=== PATIENT | female | born 1950 | race Caucasian/White ===

== ENCOUNTER → 2016-09-27 | Outpatient (CLI) | payer OTHER | LOC: FIMAGING 16:16 | DX: Z12.31 Encounter for screening mammogram for malignant neoplasm of breast (principal); Z85.41 Personal history of malignant neoplasm of cervix uteri; Z85.850 Personal history of malignant neoplasm of thyroid; Z80.3 Family history of malignant neoplasm of breast | CPT/HCPCS: G0202 ==

== ENCOUNTER 2017-03-25 08:48 | Emergency (ER) | payer OTHER ==
--- NOTE | 2017-03-25 09:03 | EDPHY ---
H & P Stated Complaint: Strated fluconazole 3 days ago;lips/tongue swelling; hurts to swallow HPI/ROS: CHIEF COMPLAINT: Allergic reaction HISTORY OF PRESENT ILLNESS: The patient is a 66 y/o female complaining of lip swelling and painful swallowing she believes is secondary to a drug reaction to fluconazole. She started fluconazole 3 days ago for a yeast infection and notes she's used this medication 3 times this summer. The last time she used she was also taking an antibiotic. She had mild oropharyngeal swelling that was thought to be due to the antibiotic, which she discontinued. Last night she noticed mild swelling in the middle of the night and upon waking this morning noticed significant lip swelling in the mirror. She also feels that her tongue is swollen. She denies hives, itching, rash, shortness of breath, lightheadedness, fever. She is otherwise healthy. REVIEW OF SYSTEMS: A ten point review of systems was performed and is negative with the exception of the items mentioned in the HPI. Past medical history: HRT, hypothyroidism Past surgical history: Denies Family history: Noncontributory Social history: at bedside. PCP: Dr. Sienna Aden General Appearance: Alert. Vital signs reviewed. No respiratory distress. Eyes: Pupils equal and round, no conjunctival injection, no discharge. Anicteric. ENT, Mouth: Mild edema to lips and mild tongue swelling, no swelling on floor of mouth. Uvula midline. Mucous membranes are moist, no oropharyngeal erythema. She is swallowing easily. Neck: No lymphadenopathy, supple. Respiratory: Lungs are clear to auscultation; no wheezes, rales, or rhonchi. No stridor. Cardiovascular: Regular rate and rhythm; no murmur, rub, or gallop. Gastrointestinal: Abdomen is soft and nontender, no masses or organomegaly, bowel sounds normal. Skin: Warm and dry, no rashes on exposed skin, normal color. Back: Nontender to palpation over the thoracolumbar spine. No CVAT. Extremities: No lower extremity edema, no calf tenderness or swelling. Neurological: Alert and oriented. Moving all four extremities easily and equally. Psychiatric: Normal affect. - Personal History Current Tetanus Diphtheria and Acellular Pertussis (TDAP): Yes - Medical/Surgical History Other PMH: yeast infection - Social History Smoking Status: Never smoked Constitutional: Initial Vital Signs Temperature (C) 37 C 03/25/17 08:50 Heart Rate 79 03/25/17 08:50 Respiratory Rate 18 03/25/17 08:50 Blood Pressure 111/80 03/25/17 08:50 O2 Sat (%) 98 03/25/17 08:50 O2 Delivery Mode Room Air Allergies/Adverse Reactions: metronidazole [From Flagyl] Allergy (Mild, Verified 03/25/17 08:53) Rash Home Medications: Medication Instructions Recorded Estrogens,Conjugated [Premarin 0.3 0.3 mg PO DAILY 03/25/17 MG (*)] Fluconazole [Diflucan (*)] 100 mg PO DAILY 03/25/17 Levothyroxine [Synthroid 100 mcg 100 mcg PO DAILY06 03/25/17 (*)] Simvastatin [Zocor] 20 mg PO 03/25/17 predniSONE [Prednisone] 20 mg PO BID #6 tablet 03/25/17 Medical Decision Making ED Course/Re-evaluation: IV established. Plan for symptomatic management with 0.3mg IV epinephrine, 50mg IV Zantac, 125mg IV Solumedrol, 25mg IV Benadryl, and 1L IV NS. 1012: Reassessed patient. Her swelling has improved. She feels shaky and tired from the medications. Will continue to reassess patient. 1220: Reassessed patient. She is feeling improved and is ready to go home. She was observed for 3 hours in the emergency department with no relapse or decline. She has discontinue the fluconazole, which is presumed to be the culprit in this setting. Obviously, that cannot be known for certain. I do not know whether the usual treatments for an allergic reaction will be effective in this setting of angioedema. I do not know whether this is mast cell mediated, bradykinin mediated, or histamine mediated angioedema. She has no family history of hereditary angioedema. She does not taken ALBERT-inhibitor. She will be discharged with a script for prednisone and standard angioedema care instructions. Return precautions given. She is comfortable with this plan. She understands that she may require further evaluation of this problem, especially if it recurs. Differential Diagnosis: I considered a differential diagnosis that includes but is not limited to anaphylaxis, allergic reaction, reaction to Albert inhibitor, hereditary angioedema , idiopathic recurrent angioedema. - Data Points Medications Given: Discontinued Medications Diphenhydramine HCl (Benadryl Injection) 25 mg IVP EDNOW ONE Stop: 03/25/17 09:13 Last Admin: 03/25/17 09:24 Dose: 25 mg Epinephrine HCl (Epinephrine) 0.3 mg IM EDNOW ONE Stop: 03/25/17 09:13 Last Admin: 03/25/17 09:22 Dose: 0.3 mg Sodium Chloride (Ns) 1,000 mls @ 0 mls/hr IV ONCE ONE; Wide Open PRN Reason: Protocol Stop: 03/25/17 09:13 Last Admin: 03/25/17 09:24 Dose: 1,000 mls Methylprednisolone Sodium Succinate (Solu-Medrol) 125 mg IVP EDNOW ONE Stop: 03/25/17 09:13 Last Admin: 03/25/17 09:27 Dose: 125 mg Ranitidine HCl (Zantac) 50 mg IVP EDNOW ONE Stop: 03/25/17 09:13 Last Admin: 03/25/17 09:24 Dose: 50 mg Departure - Departure Disposition: Home, Routine, Self-Care Clinical Impression: Angioedema Qualifiers: Encounter type: initial encounter Qualified Code(s): T78.3XXA - Angioneurotic edema, initial encounter Condition: Good Instructions: Angioedema (ED) Additional Instructions: 1. Discontinue your fluconazole. Follow up with your doctor to discuss alternative medication options. 2. Take prednisone as prescribed. 3. Use Benadryl as directed on the packaging as needed for continued symptoms over the next few days. This medication will make you sleepy. 4. Use Tagamet, available [id number], as directed on the packaging for symptoms. 5. Return to the ED for severe pain, difficulty breathing, inability to swallow , or other worsening of condition. Referrals: Sienna Tony MD [Primary Care Provider] - As per Instructions Prescriptions: predniSONE [Prednisone] 20 mg PO BID #6 tablet Report Scribed for: Juliette Tsang Report Scribed by: Kerri Caban Date of Report: 03/25/17 Time of Report: 09:16 Physician Review and Approval Statement: 03/25/17 09:03 Portions of this note were transcribed by the medical billing assistant. I, Dr. Juliette Tsang, personally performed the history, physical exam, and medical decision- making; and confirmed the accuracy of the information in the transcribed note.
[2017-03-25] MEDS ORDERED: NS 1,000 ML IV ONE (09:12)
[2017-03-25] MEDS ORDERED: methylPREDNISolone SOD SUCC 125 MG/2 ML VIAL IVP ONE (09:12)
[2017-03-25] MEDS ORDERED: RANITIDINE 50 MG/2 ML VIAL IVP ONE (09:12)
[2017-03-25 12:39] VITALS: BP 131/70; PULSE 84; RESP 16; TEMP 97.2; O2SAT 94
== END 2017-03-25 12:41 | disposition home or self-care (01) ==
DX: T78.3XXA Angioneurotic edema, initial encounter (principal); E86.9 Volume depletion, unspecified
CPT/HCPCS: 96374; J0171; J1200; J2780

== ENCOUNTER → 2017-09-29 | Outpatient (CLI) | payer OTHER | LOC: FIMAGING 15:43 | PROVIDERS: ATTEND Internal Medicine | DX: Z12.31 Encounter for screening mammogram for malignant neoplasm of breast (principal); Z80.3 Family history of malignant neoplasm of breast ==

== ENCOUNTER → 2018-10-03 | Outpatient (CLI) | payer OTHER | LOC: FIMAGING 15:55 | PROVIDERS: ATTEND Internal Medicine | DX: Z12.31 Encounter for screening mammogram for malignant neoplasm of breast (principal); Z80.3 Family history of malignant neoplasm of breast ==